=== PATIENT | female | born 1965 | race Caucasian/White ===

== ENCOUNTER 2016-11-04 21:01 | Emergency (ER) | payer OTHER ==
--- NOTE | 2016-11-04 23:15 | RAD ---
INDICATION: Right lower extremity swelling. TECHNIQUE: Multiple real-time, color flow and Doppler tracings of the right lower extremity were obtained. FINDINGS: The common femoral, femoral, profunda femoral and popliteal veins all demonstrate normal compressibility, augmentation with compression and phasic response with respiration. The posterior tibial and peroneal veins demonstrate normal compressibility and augmentation with compression. IMPRESSION: NO EVIDENCE FOR DEEP VENOUS THROMBOSIS.
[2016-11-04] MEDS ORDERED: Acetaminophen TAB* 325 MG PO ONE (23:21)
--- NOTE | 2016-11-04 23:28 | ED ---
Yoan Archuleta Billy, scribed for Ian Arauz MD on 11/04/16 at 2213 . Lower Extremity - HPI Summary HPI Summary: Patient is a 51 year-old female with a history of DVT comes to the ED with pain behind her right knee, radiating up towards her right buttock. Pain severity 4/ 10. Pain is constant, nothing makes it better/worse. She denies any other symptoms such as chest pain or SOB. PMHx of Factor V Leiden. - History of Current Complaint Chief Complaint: EDExtremityLower Stated Complaint: RIGHT LEG COMPLAINT Time Seen by Provider: 11/04/16 22:11 Hx Obtained From: Patient Mechanism Of Injury: Unknown Onset of Pain: Hours Severity Initially: Moderate Severity Currently: Moderate Pain Intensity: 4 Pain Scale Used: 0-10 Numeric Timing: Constant Location: Is Discrete @ - RLE Associated Signs And Symptoms: Positive: Negative Aggravating Factor(s): Nothing Alleviating Factor(s): Nothing - Allergies/Home Medications Allergies/Adverse Reactions: Allergies Allergy/AdvReac Type Severity Reaction Status Date / Time No Known Allergies Allergy Verified 06/27/16 16:09 PMH/Surg Hx/FS Hx/Imm Hx Endocrine/Hematology History: Reports: Other Endocrine/Hematological Disorders - Factor V Leiden; DVT Denies: Hx Diabetes Cardiovascular History: Reports: Hx Hypertension Denies: Hx Pacemaker/ICD History: Denies: Hx Renal Disease Sensory History: Denies: Hx Hearing Aid Psychiatric History: Denies: Hx Panic Disorder - Surgical History Surgery Procedure, Year, and Place: GALLBLADDER; HYSTERECTOMY; HERNIA REPAIR 2016; MYOMECTOMY X2; RIGHT ANKLE SX; Infectious Disease History: No Infectious Disease History: Denies: Traveled Outside the [place] in Last 30 Days - Family History Known Family History: Positive: Hypertension - Social History Alcohol Use: Occasionally Substance Use Type: Reports: None Hx Tobacco Use: No Smoking Status (MU): Never Smoked Tobacco Review of Systems Negative: Chest Pain Negative: Shortness Of Breath Positive: Other - RLE pain All Other Systems Reviewed And Are Negative: Yes Physical Exam - Summary Physical Exam Summary: Vital signs: reviewed General: Patient is comfortable lying in stretcher with no signs of distress HEENT: within normal limits Lungs: CTA B/L CVS: S1 & S2 present. No murmurs appreciated. ABDOMEN: Soft, non-tender. No signs of distention. No rebound no guarding, and no masses palpated. Bowel sounds are normal. EXTREMITIES: FROM in all major joints, no edema, no cyanosis or clubbing. NEURO: Alert and oriented x 3. No acute neurological deficits. Speech is normal and follows commands. SKIN: Dry and warm Triage Information Reviewed: Yes Vital Signs On Initial Exam: Initial Vitals Temp Pulse Resp BP Pulse Ox 98.7 F 95 18 168/91 100 11/04/16 21:03 11/04/16 21:03 11/04/16 21:03 11/04/16 21:03 11/04/16 21:03 Vital Signs Reviewed: Yes Diagnostics - Vital Signs Vital Signs Temp Pulse Resp BP Pulse Ox 11/04/16 21:03 98.7 F 95 18 168/91 100 - Laboratory Lab Statement: Any lab studies that have been ordered have been reviewed, and results considered in the medical decision making process. - Ultrasound No standard instances Ultrasound Interpretation Completed By: Radiologist - Lower extremity US: No evidence for DVT. Lower Extremity Course/Dx - Course Assessment/Plan: Patient is a 51 year-old female with a history of DVT comes to the ED with pain behind her right knee, radiating up towards her right buttock. Pain severity 4/10. Pain is constant, nothing makes it better/worse. She denies any other symptoms such as chest pain or SOB. PMHx of Factor V Leiden. US shows no DVT. I believe that the patients sx are secondary to musculoskeletal pain. She was given Tylenol and discharged home to follow up with PCP. I discussed all the findings and test results with the patient. Patient was instructed to return to the emergency room immediately if any of the symptoms return or worsens. Plan of care was discussed with the patient and understands and agrees. All questions were answered at patient satisfaction. There were no further complaints or concerns. P/E: Lungs: CTA B/L. Good air exchange. No wheezing or crackles heard. CVS: S1 and S2 present. No murmurs appreciated. Patient is alert and oriented x 3. Patient is hemodynamically stable. Patient will be discharged home with follow up internal review and audit compliance in the next 2-3 days - Diagnoses Differential Diagnosis/HQI/PQRI: Positive: Arthritis, Bursitis, Cellulitis, DVT , Phlebitis, Sprain, Strain Provider Diagnoses: Lower extremity pain Discharge - Discharge Plan Condition: Stable Disposition: HOME Patient Education Materials: Leg Pain (ED) Referrals: Aliyah Duron MD [Primary Care Provider] - The documentation as recorded by the Yoan delong Billy accurately reflects the service I personally performed and the decisions made by me, Ian Arauz MD.
[2016-11-04 23:30] VITALS: BP 120/80
== END 2016-11-04 23:35 | disposition home or self-care (01) ==
LOC: ED 21:01
DX: M79.604 Pain in right leg (principal)
CPT/HCPCS: 99282; A9270-GY

== ENCOUNTER 2017-04-15 23:20 | Emergency (ER) | payer OTHER ==
[2017-04-16 00:02] LABS: Urine Bacteria 1+ (Absent); Urine Bilirubin Negative (Negative); Urine Glucose Negative (Negative); Urine Nitrite Negative (Negative)
[2017-04-16] MEDS ORDERED: Ketorolac INJ* 60 MG/2 ML VIAL IM ONE (00:53)
[2017-04-16 01:31] LABS: Hematocrit 40 % (35-47); Mean Corpuscular HGB Conc 33 g/dl (31-36); Mean Corpuscular Hemoglobin 31 pg (27-31); Mean Corpuscular Volume 94 fL (80-97); Mean Platelet Volume 7 um3 (7.4-10.4); Red Blood Count 4.22 10^6/ul (4.0-5.4); Red Cell Distribution Width 14 % (10.5-15); White Blood Count 11.3 10^3/ul (3.5-10.8)
[2017-04-16 01:32] LABS: Add Diff/Slide Review? Slide Review Added; Comments Flag Yes
[2017-04-16 01:47] LABS: Albumin 4.3 g/dL (3.2-5.2); Calcium 9.5 mg/dL (8.6-10.3); EGFR African American 66.2 (>60); EGFR Non-African American 51.5 (>60); Globulin 3.4 g/dL (2-4); Potassium 3.5 mmol/L (3.5-5.0); Total Bilirubin 0.6 mg/dL (0.2-1.0); Total Protein 7.7 g/dL (6.4-8.9)
[2017-04-16] MEDS ORDERED: Sulfamethox/Trimethoprim DS 800/160* TAB PO ONE (01:58)
[2017-04-16] MEDS ORDERED: Phenazopyridine TAB* 100 MG PO ONE (01:58)
[2017-04-16 03:36] VITALS: BP 133/78
--- NOTE | 2017-04-18 09:22 | PN ---
Progress Note - Progress Note Date of Service: 04/15/17 Note: Patient urine culture grew E. Coli Patient had been placed on bactrim Appropriate treatment and will await sensitivities. Nothing further at this time Serina Pond PA-C
--- NOTE | 2017-04-19 09:02 | ED ---
Progress - Progress Note Progress Note: Sens returned sensitive to bactrim which pt is taking. No change at this time. Course/Dx - Diagnoses Provider Diagnoses: UTI (urinary tract infection)
== END 2017-04-16 03:36 | disposition home or self-care (01) ==
LOC: ED 23:20
DX: N39.0 Urinary tract infection, site not specified (principal)
CPT/HCPCS: 36415; 80053; 81003; 81015; 84702; 85025; 87077; 87086; 87186; 96372; 99283; A9270-GY; J1885

== ENCOUNTER 2019-10-19 10:56 | Emergency (ER) | payer OTHER ==
--- NOTE | 2019-10-19 11:10 | ED ---
Abdominal Pain/Female - HPI Summary HPI Summary: Patient is a 54 y/o F presenting to the ED for a chief complaint of intermittent left flank and LUQ abdominal pain that radiates to the back that began on 10/15/19. Patient was sent to [id number] from her PCPs office after a urine test showed hematuria. She describes the abdominal pain as a stabbing sensation. Patient also reports nausea, constipation, vaginal discharge, and an 8 pound weight loss. She denies fever, vomiting, diarrhea, vaginal bleeding, urinary frequency, or dysuria. Patient is still passing gas. The pain worsens with movement, but no alleviating factors are noted. Similar pain in the past is reported. PMHx is significant for HTN and nephrolithiasis 3 years ago. PSHx is significant for hernia repair, cholecystectomy, hysterectomy, and ankle surgery. She admits occasional alcohol and marijuana use, but denies tobacco use. She takes diuretics. Medications reviewed. Allergies noted. - History of Current Complaint Chief Complaint: EDFlankPain Stated Complaint: ABD PAIN/FLANK PAIN PER PT Time Seen by Provider: 10/19/19 11:07 Hx Obtained From: Patient Onset/Duration: Sudden Onset, Still Present Timing: Intermittent Episode Lasting Severity Initially: Moderate Severity Currently: Moderate Pain Intensity: 6 Pain Scale Used: 0-10 Numeric Location: Discrete At: LUQ, Flank - Left Radiates: Yes Radiates to: Back Character: Other: - Stabbing Aggravating Factor(s): Movement Alleviating Factor(s): Nothing Associated Signs and Symptoms: Positive: Back Pain, Constipation, Urinary Symptoms - Positive hematuria; negative urinary frequency or dysuria, Vaginal Discharge, Nausea. Negative: Fever, Vaginal Bleeding, Vomiting, Diarrhea Allergies/Adverse Reactions: Allergies Allergy/AdvReac Type Severity Reaction Status Date / Time No Known Allergies Allergy Verified 10/19/19 11:01 PMH/Surg Hx/FS Hx/Imm Hx Previously Healthy: Yes Endocrine/Hematology History: Reports: Other Endocrine/Hematological Disorders - Factor V Leiden; DVT Denies: Hx Diabetes Cardiovascular History: Reports: Hx Hypertension Denies: Hx Pacemaker/ICD History: Denies: Hx Renal Disease Sensory History: Denies: Hx Legally Blind, Hx Deafness, Hx Hearing Aid Opthamlomology History: Denies: Hx Legally Blind EENT History: Denies: Hx Deafness Psychiatric History: Denies: Hx Panic Disorder - Surgical History Surgical History: Yes Surgery Procedure, Year, and Place: GALLBLADDER; HYSTERECTOMY; HERNIA REPAIR 2016; MYOMECTOMY X2; RIGHT ANKLE SX; Infectious Disease History: No Infectious Disease History: Denies: Traveled Outside the [place] in Last 30 Days - Family History Known Family History: Positive: Hypertension - Social History Occupation: Employed Full-time Lives: With Family Alcohol Use: Occasionally Hx Substance Use: Yes Substance Use Type: Reports: Marijuana Hx Tobacco Use: No Smoking Status (MU): Former Smoker Review of Systems Positive: Other - Positive weight loss. Negative: Fever Positive: Abdominal Pain - LUQ, Nausea, Other - Positive constipation. Negative : Vomiting, Diarrhea Positive: discharge - Vaginal, flank pain - Left, hematuria. Negative: dysuria , frequency - Urinary, other - Negative vaginal bleeding All Other Systems Reviewed And Are Negative: Yes Physical Exam - Summary Physical Exam Summary: Constitutional: Well-developed, Well-nourished, Alert. (-) Distressed Skin: Warm, Dry HENT: Normocephalic; Atraumatic Eyes: Conjunctiva normal Neck: Musculoskeletal ROM normal neck. (-) JVD, (-) Stridor, (-) Tracheal deviation Cardio: Rhythm regular, rate normal, Heart sounds normal; Intact distal pulses; Radial pulses are 2+ and symmetric. (-) Murmur Pulmonary/Chest wall: Effort normal. (-) Respiratory distress, (-) Wheezes, (-) Rales Abd: Soft, (-) Distension, (-) Guarding, (-) Rebound. Left sided abdominal tenderness from the LUQ to the LLQ, left flank tenderness. Musculoskeletal: (-) Edema Lymph: (-) Cervical adenopathy Neuro: Alert, Oriented x3 Psych: Mood and affect Normal Triage Information Reviewed: Yes Vital Signs On Initial Exam: Initial Vitals Temp Pulse Resp BP Pulse Ox 98 F 99 18 144/103 95 10/19/19 10:58 10/19/19 10:58 10/19/19 10:58 10/19/19 10:58 10/19/19 10:58 Vital Signs Reviewed: Yes Procedures - Sedation Patient Received Moderate/Deep Sedation with Procedure: No Diagnostics - Vital Signs Vital Signs Temp Pulse Resp BP Pulse Ox 10/19/19 10:58 98 F 99 18 144/103 95 - Laboratory Result Diagrams: 10/19/19 11:28 10/19/19 11:28 Lab Statement: Any lab studies that have been ordered have been reviewed, and results considered in the medical decision making process. - CT Abdomen/Pelvis CT CT Interpretation Completed By: Radiologist Summary of CT Findings: Abdomen/Pelvis CT IMPRESSION: No obstructive uropathy is noted. No evidence of diverticulitis is noted. Patient appears to be status post hysterectomy. Reviewed by Dr. Aburto. Abdominal Pain Fem Course/Dx - Course Course Of Treatment: Patient is here with flank pain. Patient has a history of kidney stones does have blood in her urine. Patient had a negative CT scan for diverticulitis or nephrolithiasis. Patient's UA is consistent with a UTI so she was started on antibiotics. Given patient's flank pain, she was treated with pyelonephritis dosing. Patient is discharged with PCP follow-up - Diagnoses Provider Diagnoses: Pyelonephritis, Flank pain, Back pain Discharge ED - Sign-Out/Discharge Documenting (check all that apply): Patient Departure - Discharge - Discharge Plan Condition: Stable Disposition: HOME Prescriptions: Sulfamethox/Trimethoprim DS* [Bactrim DS 800/160 TAB*] 1 tab PO BID 14 Days #28 tab Patient Education Materials: Flank Pain (ED) Referrals: Aliyah Duron MD [Primary Care Provider] - Additional Instructions: PLEASE RETURN TO EMERGENCY DEPARTMENT FOR HIGH FEVER, VOMITING, YOU FEEL WORSE, OR ANY NEW OR WORSENING SYMPTOMS. Please follow up with your primary care physician. Please make all follow-ups in 1-3 days unless I advise you otherwise. Take your antibiotics as prescribed. Take Motrin or Tylenol for pain. - Billing Disposition and Condition Condition: STABLE Disposition: Home - Attestation Statements Document Initiated by Bryce: Yes Documenting Scribe: Jerri Manzano Provider For Whom Bryce is Documenting (Include Credential): Raul Aburto MD Scribe Attestation: Jerri Archuleta, manuelaibed for Raul Aburto MD on 10/19/19 at 5153. Scribe Documentation Reviewed: Yes Provider Attestation: The documentation as recorded by the Jerri delong accurately reflects the service I personally performed and the decisions made by me, Raul Aburto MD Status of Scribe Document: Viewed
[2019-10-19] MEDS ORDERED: Ketorolac INJ* 30 MG/ML 1 ML VIAL IV PUSH ONE (11:28)
[2019-10-19 11:37] LABS: ABS Basophils 0.1 10^3/ul (0-0.2); ABS Eosinophils 0.1 10^3/ul (0-0.6); ABS Lymphocytes 1.7 10^3/ul (1.0-4.8); ABS Monocytes 0.7 10^3/ul (0-0.8); ABS Neutrophils 2.3 10^3/ul (1.5-7.7); Eosinophil % 1.8 %; Hematocrit 43 % (35-47); Hemoglobin 15.1 g/dL (12.0-16.0); Lymphocyte % 35.9 %; Mean Corpuscular HGB Conc 36 g/dL (31-36); Mean Corpuscular Hemoglobin 32 pg (27-31); Mean Corpuscular Volume 89 fL (80-97); Mean Platelet Volume 7.1 fL (7.4-10.4); Nucleated Red Blood Cells % 0.1; Platelet Count 241 10^3/uL (150-450); Red Blood Count 4.78 10^6 /uL (3.70-4.87); Red Cell Distribution Width 13 % (10-15); White Blood Count 4.9 10^3/uL (3.5-10.8)
[2019-10-19 11:56] LABS: Urine Appearance Clear; Urine Bilirubin Negative (Negative); Urine Blood 1+ (Negative); Urine Color Yellow; Urine Glucose Negative (Negative); Urine Ketones Negative (Negative); Urine Nitrite Negative (Negative); Urine Protein Negative (Negative); Urine Specific Gravity 1.029 (1.010-1.030); Urine Urobilinogen Negative (Negative)
[2019-10-19 11:57] LABS: Albumin 4.5 g/dL (3.2-5.2); Albumin/Globulin Ratio 1.4 (1-3); BUN/Creatinine Ratio 20.8 (8-20); Calcium 9.8 mg/dL (8.6-10.3); EGFR African American 73.6 (>60); EGFR Non-African American 60.8 (>60); Globulin 3.2 g/dL (2-4); Potassium 3.6 mmol/L (3.5-5.0); Total Bilirubin 0.7 mg/dL (0.2-1.0); Total Protein 7.7 g/dL (6.4-8.9)
[2019-10-19 12:03] LABS: Urine Bacteria Absent (Absent); Urine Red Blood Cell 2+(6-10/hpf) (Absent); Urine Squamous Epithelial Cell Present (Absent); Urine White Blood Cell 1+(6-10/hpf) (Absent)
--- OUTSIDE RECORDS SUMMARY | 2019-10-19 12:06 | XMS REPORT | Continuity of Care Document ---
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 Problems Active Problems Provider Date Hypothyroidism Onset: 11/12/2010 Benign essential hypertension Onset: 11/12/2010 Peptic reflux disease Aliyah Ramirez MD Onset: 06/28/2014 Mild recurrent major depression Aliyah Ramirez MD Onset: 02/17/2015 Social History Type Date Description Comments Sex Unknown Tobacco Use Start: Unknown Never Smoked Cigarettes Smoking Status Reviewed: 09/18/19 Never Smoked Cigarettes ETOH Use Occasionally consumes alcohol Tobacco Use Start: Unknown Patient has never smoked Allergies, Adverse Reactions, Alerts Description No Known Drug Allergies Medications Active Medications SIG Qnty Indications Ordering Provider Date Bumetanide 1 po q Am. 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 Aliyah Ramirez 05/24/2017 Device MD Dang Aspirin Ec 1 by mouth every 90tabs D68.51 [facility] 05/24/2017 325mg Tablets day MD AHMET Leong Apap G47.33 [facility] 02/04/2015 MD Dang Losartan take one tablet 30tabs I10 [facility] 06/28/2014 Potassium/Hydrochlorot by mouth once MD Dang hiazide daily 50-12.5mg Tablets History Medications Cephalexin 1 by mouth 3 15tabs L03.114 [facility] 07/18/2019 - 500mg times a day for Dang, 07/23/2019 Tablets 5days Bupropion HCL ER (XL) take one tablet 30tabs F33.0 [facility] 2018 - by mouth every M, 05/25/2019 150mg Tablets ER 24HR morning Bupropion HCL ER (XL) take one tablet 30tabs F33.0 [facility] 2018 - by mouth every M, 05/25/2019 150mg Tablets ER 24HR morning Venlafaxine HCL ER 1 by mouth 30caps F33.0 [facility] 05/15/2019 - every day-with MD Dang 07/18/2019 37.5mg Caps ER 24HR One 75 mg qd Bupropion take one tablet 30tabs F33.0 [facility] 04/23/2019 - Hydrochloride ER (XL) by mouth once MD Dang 05/25/2019 daily 300mg Tablets ER 24HR Bupropion take one tablet 30tabs F33.0 [facility] 04/23/2019 - Hydrochloride ER (XL) by mouth once Dang, 05/25/2019 daily 150mg Tablets ER 24HR Immunizations CPT Code Status Date Vaccine Lot # [id number] Given 07/18/2019 Influenza Vac, Quadrivalent, Split, 0.5mL Dosage, [id number] Im Use [id number] Given 09/15/2018 Influenza Vac, Quadrivalent, Split, 0.5mL Dosage, [id number] Im Use 67764 Given 04/14/2018 Pneumococcal 23 Immunization Adult Or [id number] Immunosuppressed Patient 15335 Given 06/21/2017 Influenza Vac, Quadrivalent, Split, 0.5mL Dosage, [id number] Im Use 27891 Given 01/20/2016 Tdap (Adacel) Ages 7 And Above Only [id number] Given 01/20/2016 Tdap (Adacel) Ages 7 And Above Only [id number] 79580 Given 06/30/2015 Influenza Vac, Quadrivalent, Split, 0.5mL Dosage, Im Use 83623 Given 06/30/2015 Influenza Vac, Quadrivalent, Split, 0.5mL Dosage, [id number] Im Use Q2038 Given 06/28/2014 Fluzone Trivalent Immunization [id number] Q2038 Given 08/20/2011 Fluzone Trivalent Immunization [id number] Vital Signs Date Vital Result Comment 09/18/2019 3:23pm Weight 214.00 lb Heart Rate 80 /min BP Systolic 110 mmHg BP Diastolic 78 mmHg Height 70.5 inches 5'10.50" BMI (Body Mass Index) 30.3 kg/m2 07/18/2019 8:29am Weight 209.00 lb Heart Rate 89 /min BP Systolic 118 mmHg BP Diastolic 79 mmHg Height 70.5 inches 5'10.50" BMI (Body Mass Index) 29.6 kg/m2 Results Test Acquired Date Facility Test Result H/L Range Note Laboratory test finding 06/26/2019 [facility]esium 2.2 mg/dL 1.5-2.7 1 Comprehensive Met 06/26/2019 [facility] Sodium 142 mmol/L 135-146 2 [facility] Potassium 4.5 mmol/L 3.5-5.2 Chloride# 105 mmol/L 97-110 3 Carbon Dioxide 24 mmol/L 24-34 Calcium 9.2 mg/dL 8.5-10.5 4 Glucose 79 mg/dL 70-105 BUN 13 mg/dL 6-26 Creatinine 0.9 mg/dL 0.5-1.4 Total Protein 6.8 g/dL 6.0-8.0 Albumin 4.1 g/dL 3.6-4.9 Globulin 2.7 g/dL 2.0-3.5 A/G Ratio 1.5 Ratio 1.0-2.2 Total Bilirubin 0.5 mg/dL 0.1-1.3 Alkaline Phosphatase 58 U/L 24-140 Alt 17 U/L 3-42 Ast 19 U/L 8-42 Anion Gap 13 mmol/L 5-15 5 Female Egfr 73 >60 6 Male Egfr 97 >60 7 Basic (BMP) 05/25/2019 [facility] Sodium 148 mmol/L High 135-146 8, 9 Potassium 5.1 mmol/L 3.5-5.2 Chloride# 109 mmol/L 97-110 10 Carbon Dioxide 32 mmol/L 24-34 Glucose 100 mg/dL 70-105 BUN 16 mg/dL 6-26 Creatinine 1.0 mg/dL 0.5-1.4 Calcium 9.8 mg/dL 8.5-10.5 11 Female Egfr 61 >60 12 Male Egfr 82 >60 13 Anion Gap 7 mmol/L 5-15 14 Lipid Treatment 05/25/2019 [facility] Cholesterol 193 mg/dL 50-199 Triglycerides 102 mg/dL 30-200 HDL 45 mg/dL 35-85 15 Chol/ HDL Ratio 4.3 ratio 3.7-5.6 VLDL 20 mg/dL 2-29 LDL (Calc) 128 mg/dL High 20-99 16 Alt 19 U/L 3-42 Ast 19 U/L 8-42 1 Specimen received unspun 1 SST 2 Updated reference range on new analyzer 3 Updated reference range on new analyzer 4 Updated reference range 01-31-2019 5 Updated Reference Range 6 Concerning GFR Guidelines for Americans: Normal function or mild renal disease, if clinically at risk: >/= 60 mL/min Moderately decreased: 30-59 Severely decreased: 15-29 Renal failure: <15 There is reduced accuracy above 60ml/min/1.73 m squared, but the numeric value may be clinically useful in the near 60 range 7 Concerning GFR Guidelines: Normal function or mild renal disease, if clinically at risk: >/= 60 mL/min Moderately decreased: 30-59 Severely decreased: 15-29 Renal failure: <15 There is reduced accuracy above 60ml/min/1.73 m squared, but the numeric value may be clinically useful in the near 60 range Glomerular Filtration Rate (GFR) is estimated based on the CKD-EPI equation, which assumes a steady state for creatinine as recommended by the National Kidney Disease Education Program in conjunction with the National Institutes of Health and the National Kidney Foundation. Clinical conditions in which it may be necessary to measure GFR by using clearance methods include extremes of age and body size, severe malnutrition or obesity, diseases of skeletal muscle, paraplegia or quadriplegia, vegetarian diet, rapidly changing kidney function, and calculation of the dose of potentially toxic drugs that are excreted by the kidneys. 8 This sample is drawn by:[facility]. 9 Updated reference range on new analyzer 10 Updated reference range on new analyzer 11 Updated reference range 01-31-2019 12 Concerning GFR Guidelines for Americans: Normal function or mild renal disease, if clinically at risk: >/= 60 mL/min Moderately decreased: 30-59 Severely decreased: 15-29 Renal failure: <15 There is reduced accuracy above 60ml/min/1.73 m squared, but the numeric value may be clinically useful in the near 60 range 13 Concerning GFR Guidelines: Normal function or mild renal disease, if clinically at risk: >/= 60 mL/min Moderately decreased: 30-59 Severely decreased: 15-29 Renal failure: <15 There is reduced accuracy above 60ml/min/1.73 m squared, but the numeric value may be clinically useful in the near 60 range Glomerular Filtration Rate (GFR) is estimated based on the CKD-EPI equation, which assumes a steady state for creatinine as recommended by the National Kidney Disease Education Program in conjunction with the National Institutes of Health and the National Kidney Foundation. Clinical conditions in which it may be necessary to measure GFR by using clearance methods include extremes of age and body size, severe malnutrition or obesity, diseases of skeletal muscle, paraplegia or quadriplegia, vegetarian diet, rapidly changing kidney function, and calculation of the dose of potentially toxic drugs that are excreted by the kidneys. 14 Updated Reference Range 15 Per NCEP ATP III Guidelines: Results lower than 40 mg/dL are suggestive of increased risk for coronary artery disease. Results > or = to 60 mg/dL are considered a negative risk factor. 16 Per NCEP ATP III Guidelines: Normal Population <130 Patients with medical conditions: CHD/DM Optimal: <100 Borderline high: 130-159 High: 160-189 Very high: >189 Procedures Date Code Description Status 09/18/2019 42116 Admin Patient Focused Health Risk Assessment Completed Instrument 09/18/2019 46932 Electrocardiogram Complete Completed 08/20/2019 [id number] Mammogram Completed 08/10/2017 [id number] Mammogram Completed 08/09/2016 [id number] Bone Mineral Density Test Completed 08/09/2016 [id number] Mammogram Completed 08/27/2014 [id number] Mammogram Completed 07/16/2014 [id number] Mammogram Completed 11/15/2012 [id number] Mammogram Completed 11/12/2011 [id number] Colonoscopy Completed Medical Devices Description No Information Available Encounters Type Date Location Provider Dx Diagnosis Office Visit 07/18/2019 8:20a Westley Macias PA R60.0 Localized edema F33.0 Major depressive disorder, recurrent, mild I10 Essential (primary) hypertension L03.114 Cellulitis of LEFT upper limb Z23 Encounter for immunization Z68.29 Body mass index (BMI) 29.0-29.9, adult Office Visit 06/26/2019 1:20p Westley Macias PA R60.0 Localized edema F33.0 Major depressive disorder, recurrent, mild I10 Essential (primary) hypertension E66.9 Obesity, unspecified Z68.30 Body mass index (BMI) 30.0-30.9, adult Office Visit 05/25/2019 9:00a Aliyah Ravi F33.0 Major ray Leong MD disorder, recurrent, mild I10 Essential (primary) hypertension E78.2 Mixed hyperlipidemia 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 R25.1 Tremor, unspecified G47.33 Obstructive sleep apnea (adult) (pediatric) K21.0 Gastro-esophageal reflux disease with esophagitis Z68.29 Body mass index (BMI) 29.0-29.9, adult Assessments Date Code Description Provider 09/18/2019 E66.9 Obesity, unspecified Aliyah Ramirez MD 09/18/2019 Z23 Encounter for immunization Aliyah Ramirez MD 09/18/2019 Z00.01 Encounter for general adult medical Aliyah Ramirez MD examination with abnormal findings 09/18/2019 I10 Essential (primary) hypertension Aliyah Ramirez MD 09/18/2019 F33.0 Major depressive disorder, recurrent, mild Aliyah Ramirez MD 09/18/2019 R60.0 Localized edema Aliyah Ramirez MD 09/18/2019 E78.2 Mixed hyperlipidemia Aliyah Ramirez MD 09/18/2019 G47.33 Obstructive sleep apnea (adult) (pediatric) Aliyah Ramirez MD 09/18/2019 K21.0 Gastro-esophageal reflux disease with Aliyah Ramirez MD esophagitis 09/18/2019 Z12.31 Encounter for screening mammogram for Aliyah Ramirez MD malignant neoplasm of breast 09/18/2019 D68.51 Activated protein C resistance Aliyah Ramirez MD 09/18/2019 E55.9 Vitamin D deficiency, unspecified Aliyah Ramirez MD 09/18/2019 Z13.9 Encounter for screening, unspecified Aliyah Ramirez MD 09/18/2019 D32.0 Benign neoplasm of cerebral meninges Aliyah Ramirez MD 09/18/2019 Z68.30 Body mass index (BMI) 30.0-30.9, adult Aliyah Ramirez MD 07/18/2019 R60.0 Localized edema [facility] 07/18/2019 F33.0 Major depressive disorder, recurrent, mild [facility] PA 07/18/2019 I10 Essential (primary) hypertension Westley Loya PA 07/18/2019 L03.114 Cellulitis of LEFT upper limb Westley Loya PA 07/18/2019 Z23 Encounter for immunization Westley Loya PA 07/18/2019 Z68.29 Body mass index (BMI) 29.0-29.9, adult [facility] PA 06/26/2019 R60.0 Localized edema [facility] PA 06/26/2019 F33.0 Major depressive disorder, recurrent, mild [facility] PA 06/26/2019 I10 Essential (primary) hypertension Westley Loya PA 06/26/2019 E66.9 Obesity, unspecified [facility] PA 06/26/2019 Z68.30 Body mass index (BMI) 30.0-30.9, adult [facility] PA 06/26/2019 R60.0 Localized edema [facility] 05/25/2019 F33.0 Major depressive disorder, recurrent, mild Aliyah Ramirez MD 05/25/2019 I10 Essential (primary) hypertension Aliyah Ramirez MD 05/25/2019 E78.2 Mixed hyperlipidemia Aliyah Ramirez MD 05/25/2019 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 Aliyah Ramirez MD meninges 05/25/2019 R25.1 Tremor, unspecified Aliyah Ramirez MD 05/25/2019 G47.33 Obstructive sleep apnea (adult) (pediatric) Aliyah Ramirez MD 05/25/2019 K21.0 Gastro-esophageal reflux disease with Aliyah Ramirez MD esophagitis 05/25/2019 Z68.29 Body mass index (BMI) 29.0-29.9, adult Aliyah Ramirez MD 05/25/2019 E78.2 Mixed hyperlipidemia [facility] Plan of Treatment Future Appointment(s):10/05/2019 11:00 am - [facility] at Ztiyjw5803/11/2020 4: 00 pm - Aliyah Ramirez MD at Xxjotm7009/18/2019 - Aliyah Ramirez MDE66.9 Obesity, wtvcfsaublpH98 Encounter for cdpggqzdgecxT42.01 Encounter for general adult medical examination with abnormal cpftbzckV28 Essential (primary) hypertensionNew Labs:CBC with Auto Diff-[facility], Ordered: 09/18/19Comprehensive Met Panel-[facility], Ordered: 09/18/19Lipid, Ordered: 09/18/19TSH, Ordered: Free T4, Ordered: 09/18/19Vit D 25Oh, Ordered: 09/18/19Follow up:6 mosF33.0 Major depressive disorder, recurrent, mildR60.0 Localized onzvyF50.2 Mixed udmmyggultkrqzQ99.33 Obstructive sleep apnea (adult) (pediatric)New Orders:Echo , Ordered: 09/18/19Referral:[facility],Follow up:ECHO here [place] FBW w/in 1 mos give printed sleep lab ref-not new pt needss f/u she will callK21.0 Gastro-esophageal reflux disease with updcorryaeyN29.31 Encounter for screening mammogram for malignant neoplasm of qqijdsN63.51 Activated protein C mwzsommwdbD00.9 Vitamin D deficiency, lwpwbkmutspC76.9 Encounter for screening, pryvjkousmyG33.0 Benign neoplasm of cerebral meningesNew Xrays:MRI Brain Without Contrast, Ordered: 09/18/19Z68.30 Body mass index (BMI) 30.0-30.9, adult Functional Status Description No Information Available Mental Status Description No Information Available Referrals Refer to Reason for Referral Status Appt Date [facility]osed [address] [place] [id number] [phone]
[2019-10-19] MEDS ORDERED: Iohexol 300* (CONTRAST) 10 ML SDV IV ONE (12:07)
[2019-10-19 14:12] VITALS: BP 128/71
== END 2019-10-19 14:11 | disposition home or self-care (01) ==
LOC: ED 10:56
DX: N12 Tubulo-interstitial nephritis, not specified as acute or chronic (principal); K59.00 Constipation, unspecified; R31.9 Hematuria, unspecified; M54.9 Dorsalgia, unspecified
CPT/HCPCS: 36415; 74177; 80053; 81003; 81015; 83690; 85025; 87086; 96374; 99282; J1885; Q9967